=== PATIENT | female | born 1955 | race Two or more races ===

== ENCOUNTER 2020-07-06 07:52 | Outpatient (CLI) | payer OTHER ==
[~2020-07-06 07:52] MED LIST: AMBIEN5 MG; CLONAZEPAM0.5 MG PO; FOLIC ACID1 MG PO; HUMIRA20 MG/0.4; OSTERA TABLET1 EACH PO; SYNTHROID75 MCG PO; [UNRECOGNIZED DRUG - OTHER] PO
== END 2020-07-06 07:53 | disposition home or self-care (01) ==
LOC: NUCLEAR 07:52
PROVIDERS: ATTEND Orthopaedic Surgery
DX: M24.811 Other specific joint derangements of right shoulder, not elsewhere classified (principal); M24.812 Other specific joint derangements of left shoulder, not elsewhere classified; M66.821 Spontaneous rupture of other tendons, right upper arm; M66.822 Spontaneous rupture of other tendons, left upper arm
CPT/HCPCS: 78315; A9503

== ENCOUNTER 2021-09-06 06:52 | Outpatient (CLI) | payer OTHER | END 2021-09-06 07:14 | disposition home or self-care (01) | LOC: LAB 06:52 | PROVIDERS: ATTEND Internal Medicine Hematology & Oncology | DX: D50.8 Other iron deficiency anemias (principal); R79.9 Abnormal finding of blood chemistry, unspecified; I10 Essential (primary) hypertension; R74.02 Elevation of levels of lactic acid dehydrogenase [LDH]; K76.89 Other specified diseases of liver; D51.1 Vitamin B12 deficiency anemia due to selective vitamin B12 malabsorption with proteinuria; D51.0 Vitamin B12 deficiency anemia due to intrinsic factor deficiency; E03.8 Other specified hypothyroidism; E06.3 Autoimmune thyroiditis; C50.919 Malignant neoplasm of unspecified site of unspecified female breast; R97.8 Other abnormal tumor markers; C25.9 Malignant neoplasm of pancreas, unspecified; C56.9 Malignant neoplasm of unspecified ovary; R97.1 Elevated cancer antigen 125 [CA 125]; Z20.3 Contact with and (suspected) exposure to rabies; M05.29 Rheumatoid vasculitis with rheumatoid arthritis of multiple sites; R11.2 Nausea with vomiting, unspecified; E78.2 Mixed hyperlipidemia; K29.50 Unspecified chronic gastritis without bleeding ==

== ENCOUNTER → 2021-09-06 | Outpatient (CLI) | payer OTHER | END | disposition home or self-care (01) | LOC: SONOGRAMA 08:00 | PROVIDERS: ATTEND Internal Medicine Hematology & Oncology | DX: E04.2 Nontoxic multinodular goiter (principal) ==

== ENCOUNTER → 2022-06-29 | Outpatient (CLI) | payer OTHER | END | disposition home or self-care (01) | LOC: NUCLEAR 07:00 | PROVIDERS: ATTEND Internal Medicine Cardiovascular Disease | DX: I25.10 Atherosclerotic heart disease of native coronary artery without angina pectoris (principal) | CPT/HCPCS: 78452; 93017; A9500; J0153 ==

== ENCOUNTER 2022-06-30 10:02 | Outpatient (CLI) | payer OTHER | END 2022-06-30 10:10 | disposition home or self-care (01) | LOC: LAB 10:02 | PROVIDERS: ATTEND Orthopaedic Surgery | DX: D68.9 Coagulation defect, unspecified (principal); E78.2 Mixed hyperlipidemia; N39.0 Urinary tract infection, site not specified; Z03.818 Encounter for observation for suspected exposure to other biological agents ruled out; R07.9 Chest pain, unspecified ==

== ENCOUNTER 2022-07-06 07:30 | Inpatient (IN) | payer OTHER ==
[~2022-07-06] VITALS: Ht 154.9 cm; Wt 81.6 kg
[2022-07-06] MEDS ORDERED: FUSION PLUS CA1 EACH PO (10:25)
[2022-07-06] MEDS ORDERED: COZAAR25 MG PO (10:25)
[2022-07-06] MEDS ORDERED: ATORVASTATIN CA10 MG PO (10:25)
[2022-07-06] MEDS ORDERED: VITAL-D RX TAB1 EACH PO (10:26)
[2022-07-06] MEDS ORDERED: ACID CONTROLLER10 MG PO (10:26)
[2022-07-10] MEDS ORDERED: FLUOCINOLONE AC20 ML (08:09)
[2022-07-10] MEDS ORDERED: LOSARTAN POTASS50 MG (08:09)
[2022-07-10] MEDS ORDERED: GLYCOPYRROLATE2 MG (08:09)
[2022-07-10] MEDS ORDERED: FAMOTIDINE40 MG (08:09)
[2022-07-10] MEDS ORDERED: METHOTREXA25 MG/1 M5 (08:09)
[2022-07-10] MEDS ORDERED: PROLIA60 MG/1 ML (08:10)
[2022-07-10] MEDS ORDERED: FLUOROMETHOLONE5 ML (08:10)
[2022-07-10] MEDS ORDERED: LOSARTAN POTASS25 MG (08:10)
== END 2022-07-12 17:19 | DRG 470 ==
LOC: SURG 07-10 05:45 → O/R 07-10 05:45 → SURH 07-10 07:00 → SURG 07-10 11:25
PROVIDERS: ADMIT Orthopaedic Surgery; ATTEND Orthopaedic Surgery
PROC: 0SRC0JZ Replacement of Right Knee Joint with Synthetic Substitute, Open Approach (ICD-10-PCS; principal; 2022-07-10 07:00)
DX: M17.11 Unilateral primary osteoarthritis, right knee (principal); D62 Acute posthemorrhagic anemia; M85.661 Other cyst of bone, right lower leg; R26.89 Other abnormalities of gait and mobility; E66.01 Morbid (severe) obesity due to excess calories

== ENCOUNTER → 2022-10-25 06:33 | Outpatient (CLI) | payer OTHER ==
[~2022-10-25 06:33] MED LIST changes: +ACID CONTROLLER10 MG PO; +ATORVASTATIN CA10 MG PO; +COZAAR25 MG PO; +FAMOTIDINE40 MG; +FLUOCINOLONE AC20 ML; +FLUOROMETHOLONE5 ML; +FUSION PLUS CA1 EACH PO; +GLYCOPYRROLATE2 MG; +LOSARTAN POTASS25 MG; +LOSARTAN POTASS50 MG; +METHOTREXA25 MG/1 M5; +PROLIA60 MG/1 ML; +VITAL-D RX TAB1 EACH PO
== END | disposition home or self-care (01) ==
LOC: LAB 06:33 → NUCLEAR 07:00
PROVIDERS: ATTEND Internal Medicine Hematology & Oncology
DX: D50.8 Other iron deficiency anemias (principal); I10 Essential (primary) hypertension; R74.02 Elevation of levels of lactic acid dehydrogenase [LDH]; K76.89 Other specified diseases of liver; E03.8 Other specified hypothyroidism; E83.52 Hypercalcemia; Z80.3 Family history of malignant neoplasm of breast; M05.29 Rheumatoid vasculitis with rheumatoid arthritis of multiple sites; R11.2 Nausea with vomiting, unspecified; K29.50 Unspecified chronic gastritis without bleeding; E78.2 Mixed hyperlipidemia; D35.1 Benign neoplasm of parathyroid gland

== ENCOUNTER 2022-10-25 07:34 | Outpatient (CLI) | payer OTHER | END 2022-10-25 07:35 | disposition home or self-care (01) | LOC: NUCLEAR 07:34 | PROVIDERS: ATTEND Internal Medicine Hematology & Oncology | DX: D35.1 Benign neoplasm of parathyroid gland (principal) | CPT/HCPCS: 78072; A9500 ==